=== PATIENT | female | born 1960 ===

== ENCOUNTER 2016-10-13 03:43 | Emergency (ER) | payer MEDICAID ==
[2016-10-13 03:44] VITALS: PULSE 142; BMI 54.3
[2016-10-13] MEDS ORDERED: Albuterol-Ipratrop 3 mg / 0.5 (3 ml) UD ONE ×2 (03:49→04:53)
--- NOTE | 2016-10-13 04:08 | C.PDOC ---
History Of Present Illness Pt presents with worsening sob for the last 2 days. No f/c/n/v. Was recently diagnosed with atrial fibrillation. Has not taken any cardizem because she dropped her pills in the toilet by accident. Speaking in complete sentences. No f/c/n/v.. She received 30 mg iv cardizem en route for afib at 130bpm Time Seen by Provider: 10/13/16 04:07 Chief Complaint (Nursing): Shortness Of Breath History Per: Patient History/Exam Limitations: no limitations Onset/Duration Of Symptoms: Hrs Current Symptoms Are (Timing): Still Present Initiating Event: Upper Respiratory Illness Quality: Dull Exacerbating Factor(s): Exertion, Coughing Current Respiratory Medications: See Home Med List Severity: Moderate Pain Scale Rating Of: 4 Associated Symptoms: denies: Fever, Chills, Anxiety Reports Recently: Seen In ED, Treated By A Physician, Hospitalized Recent travel outside of the [place]: No Additional History Per: Family Past Medical History Reviewed: Historical Data, Nursing Documentation, Vital Signs Vital Signs: Last Vital Signs Temp 98.3 F 10/13/16 03:53 Pulse 131 H 10/13/16 05:44 Resp 22 10/13/16 05:12 BP 177/80 H 10/13/16 05:44 Pulse Ox 100 10/13/16 05:54 - Medical History PMH: Arthritis, Atrial Fibrillation (dx first week of september), COPD, Diabetes, Fractures (ribs), HTN, Hypercholesterolemia Denies: HIV, Chronic Kidney Disease Surgical History: Carotid Endarterectomy, Hernia Repair, Tonsillectomy - [facility] Procedures INJECT/INFUSE NEC (02/10/14) NEBULIZER THERAPY (07/03/14) VACCINATION NEC (10/28/14) Family History: States: Diabetes, Hypertension - Social History Hx Tobacco Use: No Hx Alcohol Use: Yes Hx Substance Use: No - Immunization History Hx Tetanus Toxoid Vaccination: No Hx Influenza Vaccination: No Hx Pneumococcal Vaccination: No Review Of Systems Constitutional: Negative for: Fever, Chills Eyes: Negative for: Vision Change ENT: Negative for: Throat Pain Cardiovascular: Negative for: Chest Pain, Palpitations Respiratory: Positive for: Cough, Shortness of Breath, SOB with Excertion Gastrointestinal: Negative for: Nausea, Vomiting, Abdominal Pain Genitourinary: Negative for: Dysuria Musculoskeletal: Negative for: Back Pain Skin: Negative for: Rash, Lesions Neurological: Negative for: Weakness Psych: Negative for: Anxiety Physical Exam - Physical Exam Appears: Non-toxic Skin: Warm, Dry Eye(s): bilateral: Normal Inspection Oral Mucosa: Moist Throat: No Erythema Neck: Trachea Midline, Supple Chest: Symmetrical Cardiovascular: Rhythm Irregular Respiratory: Decreased Breath Sounds, No Rales, Rhonchi (bases), Wheezing (few) Gastrointestinal/Abdominal: Soft, No Tenderness, Other (morbidly obese) Back: No CVA Tenderness Extremity: No Tenderness Extremity: Bilateral: Atraumatic Neurological/Psych: Oriented x3, Normal Speech, Normal Cognition Gait: Steady ED Course And Treatment - Laboratory Results Result Diagrams: 10/13/16 04:41 10/13/16 04:41 ECG: Interpreted By Me, Viewed By Me ECG Rhythm: Atrial Fibrillation (108), Nonspecific Changes O2 Sat by Pulse Oximetry: 100 Pulse Ox Interpretation: Normal - Radiology CXR: Interpreted by Me, Viewed By Me CXR Interpretation: Yes: COPD, Cardiomegaly. No: Infiltrates, Fracture, Pnemothorax Progress Note: blood work, nebs, steroids, blood cultures Critical Care Time - Critical Care Note Total Time (in mins): 30 Documented critical care: time excludes all time spent performing seperately billable procedures. Medical Decision Making Medical Decision Making: Upon provider reevaluation patient is feeling better, is medically stable, and requires no further treatment in the ED at this time. Patient will be discharged home with Rx for prednisone and cardizem . Counseling was provided and all questions were answered regarding diagnosis and need for follow up with the referred clinic. There is agreement to discharge plan. Return if symptoms persist or worsen. Disposition Counseled Patient/Family Regarding: Studies Performed, Diagnosis, Need For Followup, Rx Given - Disposition Referrals: [facility] [Outside] Disposition: HOME/ ROUTINE Disposition Time: 04:08 Condition: FAIR Prescriptions: [id number] CD [Cardizem CD] 180 mg PO DAILY #90 c24 Prednisone [Deltasone] 20 mg PO DAILY #5 tablet Instructions: Atrial Fibrillation (DC), COPD (Chronic Obstructive Pulmonary Disease) (DC) - Clinical Impression Clinical Impression: COPD exacerbation, Atrial fibrillation
[2016-10-13] MEDS: Albuterol-Ipratrop 3 mg / 0.5 (3 ml) UD IH SCH ×3 (04:37→05:04)
[2016-10-13 04:44] LABS: BASO % 0.4 % (0.0-2.0); EOS # 0.1 K/uL (0.0-0.7); EOS % 1.7 % (0.0-4.0); HEMATOCRIT 41.7 % (34.0-47.0); LYMPH # 1.2 K/uL (1.0-4.3); LYMPH % 13.6 % (20.0-40.0); MEAN CELL VOLUME 85.7 fL (81.0-99.0); MEAN CORPUSCULAR HEMOGLOBIN 27.3 pg (27.0-31.0); MEAN CORPUSCULAR HGB CONC 31.8 g/dL (33.0-37.0); MEAN PLATELET VOLUME 9.5 fL (7.2-11.7); MONO # 0.4 K/uL (0.0-0.8); MONO % 4.8 % (0.0-10.0); NRBC % 0.1 % (0.0-2.0); RED CELL DISTRIBUTION WIDTH 14.6 % (11.5-14.5); WHITE BLOOD COUNT 8.9 K/uL (4.8-10.8)
[2016-10-13 04:54] LABS: CHLORIDE 99 mmol/L (98-107)
[2016-10-13 04:55] LABS: POTASSIUM 3.9 mmol/L (3.6-5.2); SODIUM 136 mmol/L (132-148)
[2016-10-13 04:56] LABS: GFR AFRICAN-AMERICAN > 60
[2016-10-13 04:57] LABS: ALB/GLOB RATIO 1.2 (1.0-2.1); ALKALINE PHOSPHATASE 208 U/L (38-126); ALT/SGPT 64 U/L (9-52); AST/SGOT 39 U/L (14-36); BILIRUBIN,TOTAL 1.4 mg/dL (0.2-1.3); BLOOD UREA NITROGEN 31 mg/dL (7-17); CARBON DIOXIDE 24 mmol/L (22-30); GLUCOSE,RANDOM 228 mg/dL (65-105); TOTAL PROTEIN 7.1 g/dL (6.3-8.3)
[2016-10-13 04:58] LABS: CALCIUM 8.3 mg/dl (8.6-10.4); MAGNESIUM 1.7 mg/dL (1.6-2.3)
[2016-10-13 05:02] LABS: VENOUS BLOOD GAS PCO2 45 mmHg (40-60); VENOUS BLOOD PH 7.42 (7.32-7.43)
[2016-10-13 05:10] LABS: INR 1.9
[2016-10-13 05:29] LABS: THYROID STIMULATING HORMONE 3.56 mIU/L (0.46-4.68)
[2016-10-13 05:44] LABS: RBC URINE 3 /hpf (0-3); URINE BILIRUBIN NEGATIVE (NEGATIVE); URINE BLOOD NEGATIVE (NEGATIVE); URINE COLOR Yellow (YELLOW); URINE GLUCOSE (UA) 2+ mg/dL (Normal); URINE KETONE TRACE mg/dL (NEGATIVE); URINE LEUKOCYTE ESTERASE NEG Leu/uL (Negative); URINE PROTEIN 1+ mg/dL (NEGATIVE); WBC URINE < 1 /hpf (0-5)
[2016-10-13 05:47] VITALS: BP 177/80
[2016-10-13 06:17] VITALS: PULSE 105; RESP 20; TEMP 98; O2SAT 94
--- NOTE | 2016-10-13 09:12 | RAD ---
PROCEDURE: CHEST RADIOGRAPH, 1 VIEW HISTORY: SOB COMPARISON: None available. FINDINGS: LUNGS: No appreciable infiltrate or significant atelectasis although the overlying soft tissue limits evaluation. Trachea is midline. PLEURA: No pneumothorax or pleural fluid seen. CARDIOVASCULAR: Heart is mildly enlarged. OSSEOUS STRUCTURES: No significant abnormalities. VISUALIZED UPPER ABDOMEN: Normal. OTHER FINDINGS: None. IMPRESSION: No focal alveolar infiltrate or CHF.
== END 2016-10-13 06:18 | disposition home or self-care (01) ==
LOC: C.ER 03:43
DX: J44.1 Chronic obstructive pulmonary disease with (acute) exacerbation (principal); I48.91 Unspecified atrial fibrillation
CPT/HCPCS: 36415; 71010; 80053; 81001; 82803; 83735; 83880; 84443; 85025; 85610; 85730; 87040; 96374; 96375; 99285; J1940; J2930